=== PATIENT | male | born 1990 | race Caucasian/White ===

== ENCOUNTER 2022-05-28 10:24 | Emergency (ER) | payer OTHER, SELFPAY ==
[2022-05-28 10:31] VITALS: BP 126/80; PULSE 10; RESP 18; TEMP 37.1; O2SAT 97; BMI 36.0
--- NOTE | 2022-05-28 12:07 | ED_ITS ---
HPI - Back Pain/Injury General: Chief Complaint: Back Pain/Injury Stated Complaint: lower back pain, blood in stool Time Seen by Provider: 05/28/22 11:35 Source: patient Mode of arrival: ambulatory History of Present Illness: -year-old male presents emergency room complaining of abdominal discomfort states he has been very constipated the last couple of days he has had a small amount of blood when he wipes after attempting to have a bowel movement. He had to strain quite a bit which is led to a little bit of bleeding. He has not been active or continuous. He has some abdominal cramping and discomfort radiating to his back he denies any dysuria urgency or frequency. Onset (ago): day(s) Timing: intermittent Severity: mild Quality: aching Exacerbating factors: none Relieving factors: none Associated symptoms: Reports abdominal pain and change in bowel habits; Deny arthralgias, chills, difficulty walking, dysuria, fatigue, fecal incontinence, fever(s), hematuria, myalgias, nausea, numbness, syncope, tingling/numbness/burning, urinary frequency, urinary urgency, vomiting or weakness Review of Systems Const: Denies: fever(s), chills, fatigue or malaise ENMT: Denies: throat pain, ear or mastoid pain, nasal discharge or nasal congestion Card: Denies: syncope Resp: Denies: dyspnea, productive cough or non-productive cough GI: Reports: abdominal pain, constipation and change in bowel habits; Denies: nausea, vomiting or fecal incontinence : Denies: dysuria, urinary urgency or hematuria Musc: Reports: back pain Skin/Breast: Denies: rash or pruritus Neuro: Denies: difficulty walking PFSH ED PFSH: Medical History (Updated 05/28/22 @ 14:42 by Arnold Toney DO) No pertinent past medical history Surgical History (Updated 05/28/22 @ 14:42 by Arnold Toney DO) No pertinent past surgical history Social History (Updated 05/28/22 @ 14:43 by Arnold Toney DO) Smoking and tobacco status: never smoked Alcohol intake: never Physical Exam Const: COMMON NORMALS: no acute distress GENERAL APPEARANCE: cooperative and comfortable ORIENTATION/CONSCIOUSNESS: Yes awake, Yes oriented to person, Yes oriented to place and Yes oriented to time HENMT: COMMON NORMALS: normocephalic, atraumatic and hearing grossly normal bilaterally HEAD & SCALP: normocephalic and atraumatic Resp: COMMON NORMALS: normal respiratory effort, No retractions, No use of accessory muscles and clear to auscultation bilaterally AUSCULTATION: clear to auscultation bilaterally Cardio: COMMON NORMALS: regular rate, regular rhythm and No murmurs present (Cardio) RATE: regular rate RHYTHM: regular rhythm GI: COMMON NORMALS: Soft to palpation and No hepatosplenomegaly present AUSCULTATION: Yes normoactive bowel sounds PALPATION: Yes Soft to palpation, No Tenderness to palpation present (GI), No Guarding due to palpation present (GI) and Yes No hepatosplenomegaly present Extremity: COMMON NORMALS: normal to inspection, capillary refill normal, no clubbing, cyanosis or edema, no calf tenderness and no pedal edema Neuro: SENSORIUM/ORIENTATION: Yes oriented to person, Yes oriented to place and Yes oriented to time Skin: COMMON NORMALS: no rashes or lesions noted GENERAL SKIN EXAM: no rashes or lesions noted Course Vital Signs: Vital signs: Vital Signs Temperature 98.8 F 05/28/22 10:31 Pulse Rate 92 05/28/22 14:00 Respiratory Rate 14 05/28/22 14:00 Blood Pressure 128/74 05/28/22 14:00 Pulse Oximetry 98 05/28/22 14:00 Oxygen Delivery Me thod 05/28/22 14:00 MDM - Back Pain/Injury Medical Decision Making Constipation on KUB no air-fluid levels exam is unremarkable. He is not really use any laxatives use stool softeners and MiraLAX discussed with him the difference between stimulants versus things that can be used to prevent constipation such as the stool softeners the polyethylene glycol. Recommend to continue the MiraLAX use lactulose for relief of immediate constipation follow- up with primary care doctor as needed Medical Records I reviewed the patient's medical records. Labs I reviewed the patient's lab results. 05/28/22 12:05 05/28/22 12:05 Radiology Impressions KUB X-Ray 05/28/22 12:17 IMPRESSION: Mild prominence of the amount of stool. No acute abnormality. Laboratory Results WBC 2.2 10^3/uL (4.0-10.0) L 05/28/22 12:05 RBC 5.08 10^6/uL (4.1-5.3) 05/28/22 12:05 Hgb 14.6 g/dL (11.7-16.6) 05/28/22 12:05 Hct 43.3 % (42.0-52.0) 05/28/22 12:05 MCV 85.2 fl (80-94) 05/28/22 12:05 MCH 28.7 pg (28.0-34.0) 05/28/22 12:05 MCHC 33.7 g/dL (30.0-36.0) 05/28/22 12:05 RDW 13.1 % (12.1-15.1) 05/28/22 12:05 Plt Count 151 10^3/cmm (130-400) 05/28/22 12:05 MPV 9.9 fL (7.4-10.4) 05/28/22 12:05 Neut % (Auto) 65.8 % 05/28/22 12:05 Lymph % (Auto) 16.4 % 05/28/22 12:05 [place] % (Auto) 17.8 % 05/28/22 12:05 Eos % (Auto) 0.0 % 05/28/22 12:05 Baso % (Auto) 0.0 % 05/28/22 12:05 Neut # (Auto) 1.44 10^3/uL (1.8-7.7) L 05/28/22 12:05 Lymph # (Auto) 0.4 10^3/uL (0.8-4.8) L 05/28/22 12:05 [place] # (Auto) 0.4 10^3/uL (0.2-0.9) 05/28/22 12:05 Eos # (Auto) 0.0 10^3/uL (0.0-0.8) 05/28/22 12:05 Baso # (Auto) 0.0 10^3/uL (0.0-0.1) 05/28/22 12:05 Nucleated RBC % (auto) 0 % 05/28/22 12:05 Nucleated RBCs # 0.0 /100WBC 05/28/22 12:05 Sodium 135 mmol/L (136-145) L 05/28/22 12:05 Potassium 4.2 mmol/L (3.5-5.1) 05/28/22 12:05 Chloride 98 mmol/L (98-107) 05/28/22 12:05 Carbon Dioxide 26 mmol/L (22-29) 05/28/22 12:05 Anion Gap 15.2 (5-19) 05/28/22 12:05 BUN 11 mg/dL (6-20) 05/28/22 12:05 Creatinine 0.8 mg/dL (0.7-1.2) 05/28/22 12:05 GFR Calculation 114.3 mL/min (90-130) 05/28/22 12:05 Glucose 94 mg/dL (65-115) 05/28/22 12:05 Calculated Osmolality 279 mOsm/kg (285-295) L 05/28/22 12:05 Calcium 8.9 mg/dL (8.5-10.5) 05/28/22 12:05 Total Bilirubin 1.0 mg/dL (0.15-1.2) 05/28/22 12:05 AST 27 U/L (0-40) 05/28/22 12:05 ALT 30 U/L (0-41) 05/28/22 12:05 Alkaline Phosphatase 62 U/L (40-130) 05/28/22 12:05 Total Protein 7.1 g/dL (6.6-8.7) 05/28/22 12:05 Albumin 4.3 g/dL (3.5-5.2) 05/28/22 12:05 Globulin 2.8 g/dL (1.3-4.6) 05/28/22 12:05 Discharge Plan Discharge Patient Disposition: Home Clinical Impression: Constipation Condition: Stable Prescriptions: New lactulose 20 gram/30 mL solution 30 g PO Q2H 1 Days Qty: 540 0RF Rx Instructions: until desired laxative effect Discharge Orders: Discharge ED (Routine); Ordered 05/28/22 Ordered By: Arnold Toney Referrals: Brittani Mccullough, [Primary Care Provider] - Discharge Diet: Usual diet Discharge Activity: Increase activity as tolerated Patient Instructions: Opioid Safety, Pain Management Activity Restrictions/Additional Instructions: You were seen today for constipation. MiraLAX and stool softeners will not significantly relieve constipation, they can be used to prevent constipation in the future. Recommend you use lactulose 1 dose every 2 hours until you achieve adequate results. Bleeding was constipation or difficult bowel movements is not unusual if it persist follow-up with your primary care doctor. Your hemoglobin was checked today and was stable. Your white count was slightly decreased and you should follow that up with your primary care doctor within the next 4 to 6 weeks. Coding Level of Care Code ED [employer] for Yoav Becker
[2022-05-28 12:16] LABS: Hematocrit 43.3 % (42.0-52.0); Hemoglobin 14.6 g/dL (11.7-16.6); Lymphocytes # 0.4 10^3/uL (0.8-4.8); Lymphocytes % 16.4 %; Mean Corpuscular HGB Conc 33.7 g/dL (30.0-36.0); Mean Corpuscular Hemoglobin 28.7 pg (28.0-34.0); Mean Corpuscular Volume 85.2 fl (80-94); Mean Platelet Volume 9.9 fL (7.4-10.4); Monocytes # 0.4 10^3/uL (0.2-0.9); Monocytes % 17.8 %; Neutrophils # 1.44 10^3/uL (1.8-7.7); Neutrophils % 65.8 %; Nucleated Red Blood Cells % 0 %; Platelet Count 151 10^3/cmm (130-400); Red Blood Count 5.08 10^6/uL (4.1-5.3); Red Cell Distribution Width 13.1 % (12.1-15.1); White Blood Count 2.2 10^3/uL (4.0-10.0)
--- NOTE | 2022-05-28 12:17 | XRR_ITS ---
PROCEDURE INFORMATION: Exam: XR Abdomen Exam date and time: 05/28/2022 12:30 PM Age: 31 years old Clinical indication: Abdominal pain; Generalized; Patient HX: Abd pain, constipation, spasms for the last couple of days, now starting to have lower back pain TECHNIQUE: Imaging protocol: Radiologic exam of the abdomen. Views: Frontal supine view of the abdomen. 1 View. COMPARISON: No relevant prior studies available. FINDINGS: Gastrointestinal tract: There is mild prominence of the amount of stool in the colon and rectum. There is no evidence of bowel obstruction or dilatation. Bones/joints: Unremarkable. XR/XR KUB portable 34610 IMPRESSION: Mild prominence of the amount of stool. No acute abnormality.
[2022-05-28 12:39] LABS: Alanine Aminotransferase 30 U/L (0-41); Albumin Level 4.3 g/dL (3.5-5.2); Alkaline Phosphatase 62 U/L (40-130); Anion Gap 15.2 (5-19); Aspartate Amino Transferase 27 U/L (0-40); Blood Urea Nitrogen 11 mg/dL (6-20); Calcium 8.9 mg/dL (8.5-10.5); Carbon Dioxide 26 mmol/L (22-29); Chloride 98 mmol/L (98-107); Globulin 2.8 g/dL (1.3-4.6); Glomerular Filtration Rate 114.3 mL/min (90-130); Glucose 94 mg/dL (65-115); Osmolality Calculated 279 mOsm/kg (285-295); Potassium 4.2 mmol/L (3.5-5.1); Sodium 135 mmol/L (136-145); Total Protein 7.1 g/dL (6.6-8.7)
[2022-05-28 14:00] VITALS: BP 128/74; PULSE 92; RESP 14; O2SAT 98
== END 2022-05-28 14:00 | disposition home or self-care (01) ==
PROVIDERS: Emergency Provider Family Medicine; PCP Family Medicine
DX: K59.00 Constipation, unspecified (principal)
CPT/HCPCS: 74018; 80053; 85025; 99284